=== PATIENT | female | born 1950 | race Caucasian/White ===

== ENCOUNTER 2016-05-07 10:05 | Outpatient (CLI) | payer MEDICARE, OTHER | END 2016-05-07 10:06 | LOC: LAB 10:05 | PROVIDERS: ATTEND Family Medicine | DX: Z13.6 Encounter for screening for cardiovascular disorders (principal); Z13.1 Encounter for screening for diabetes mellitus; Z00.00 Encounter for general adult medical examination without abnormal findings | CPT/HCPCS: 36415; 80061; 82947 ==

== ENCOUNTER 2016-05-21 09:48 | Outpatient (CLI) | payer MEDICARE, OTHER | END 2016-05-21 09:50 | LOC: RAD 09:48 | PROVIDERS: ATTEND Family Medicine | DX: Z78.0 Asymptomatic menopausal state (principal) | CPT/HCPCS: 77080 ==